=== PATIENT | male | born 1980 | race Caucasian/White ===

== ENCOUNTER 2017-11-27 12:10 | Emergency (ER) | payer BC, OTHER ==
[2017-11-27 12:15] VITALS: BP 124/75; PULSE 81; TEMP 98.2; BMI 26.9
--- NOTE | 2017-11-27 13:04 | PDOC ---
History of Present Illness - General Chief Complaint: Laceration Stated Complaint: LACERATION Time Seen by Provider: 11/27/17 12:49 History Source: Patient Exam Limitations: No Limitations - History of Present Illness Initial Comments: 11/27/17 12:56 This is a 36-year-old male without significant past medical history of presents emergency Department with laceration sustained to posterior right leg status post kicking through a glass door. Patient states this happened immediately prior to arrival is 1. Patient is concerned for retained foreign body within the wound. Patient states last tetanus shot was 3 years ago. Past History - Past Medical History Allergies/Adverse Reactions: Allergies Allergy/AdvReac Type Severity Reaction Status Date / Time No Known Allergies Allergy Verified 11/27/17 12:15 Home Medications: Ambulatory Orders NK [No Known Home Medication] 11/27/17 Cancer: Yes (leukemia) - Suicide/Smoking/Psychosocial Hx Smoking Status: No Smoking History: Never smoked Have you smoked in the past 12 months: No Number of Cigarettes Smoked Daily: 0 Information on smoking cessation initiated: No Hx Alcohol Use: No Drug/Substance Use Hx: No Review of Systems - Review of Systems Able to Perform ROS?: Yes Is the patient limited Icelandic proficient: No Constitutional: No: Symptoms Reported HEENTM: No: Symptoms Reported Respiratory: No: Symptoms reported Cardiac (ROS): No: Symptoms Reported ABD/GI: No: Symptoms Reported : No: Symptoms Reported Musculoskeletal: No: Symptoms Reported Integumentary: Yes: See HPI Neurological: No: Symptoms reported *Physical Exam - Vital Signs Last Vital Signs Temp Pulse Resp BP Pulse Ox 98.2 F 81 16 124/75 100 11/27/17 12:14 11/27/17 12:14 11/27/17 12:14 11/27/17 12:14 11/27/17 12:14 - Physical Exam General Appearance: Yes: Appropriately Dressed. No: Apparent Distress HEENT: positive: Normal ENT Inspection Neck: positive: Trachea midline, Supple Respiratory/Chest: positive: Lungs Clear, Normal Breath Sounds. negative: Respiratory Distress, Accessory Muscle Use Cardiovascular: positive: Regular Rhythm, Regular Rate. negative: Murmur Integumentary: positive: Dry, Warm, Other (2 lacerations noted to posterior right lower leg. Laceration #1 superficial linear approximately 1 cm in length. Laceration #2 is a flap laceration with minor obvious tissue loss noted.) Neurologic: positive: Alert, Normal Response Medical Decision Making - Medical Decision Making 11/27/17 12:59 A/P: 36-year-old male without significant past medical history with 2 lacerations to the back of his right lower leg status post kicking through a glass door 2 laceration sustained to the posterior of the right lower leg Laceration #1 is superficial, subcentimeter and linear well approximated without bleeding Laceration #2 is a flap laceration approximately 0.5 centimeter x 0.5 centimeter with obvious minor tissue loss. X-ray of the right leg 11/27/17 13:56 X-rays reviewed by me and read by Dr. Green: There is no sign of radiopaque foreign body, swelling or soft tissue air but there is some anterior calcifications by the distal tibia. Steri-Strips applied to laceration. Discharge I discussed the physical exam findings, ancillary test results and final diagnoses with the patient. I answered all of the patient's questions. The patient was satisfied with the care received and felt comfortable with the discharge plan and treatment plan. The patient will call his doctor within 96 hours to arrange follow-up and will return to the Emergency Department with any new, persistent or worsening symptoms. *DC/Admit/Observation/Transfer Diagnosis at time of Disposition: Laceration - Discharge Dispostion Disposition: HOME Condition at time of disposition: Good Decision to Admit order: No - Referrals Referrals: Travon Brown MD [Primary Care Provider] - - Patient Instructions Printed Discharge Instructions: DI for Laceration Repair Additional Instructions: Keep wound clean and dry Return to emergency Department or private physician in 5-7 days for suture removal May use Tylenol or Motrin for pain relief Return immediately to emergency department for redness, swelling, pain, or signs of infection - Post Discharge Activity
== END 2017-11-27 14:03 | disposition home or self-care (01) ==
LOC: JERFT 12:10
PROC: 0HQKXZZ Repair Right Lower Leg Skin, External Approach (ICD-10-PCS; principal; 2017-11-27)
DX: S81.811A Laceration without foreign body, right lower leg, initial encounter (principal); W25.XXXA Contact with sharp glass, initial encounter; Y93.89 Activity, other specified; Y92.89 Other specified places as the place of occurrence of the external cause; Y99.8 Other external cause status
CPT/HCPCS: 73590-TC-RT-FY; 99281-25

== ENCOUNTER 2022-05-24 10:31 | Day surgery (SDC) | payer BC, OTHER ==
[2022-05-20 13:37] VITALS: BMI 25.4
[2022-05-24 10:54] VITALS: RESP 20; TEMP 97.8
[2022-05-24] MEDS ORDERED: PROPOFOL 100 ML ONE (11:13)
[2022-05-24] MEDS ORDERED: LIDOCAINE HCL/PF 2% SDV 5ML VIAL ONE (11:13)
[2022-05-24 12:05] VITALS: BP 101/50; PULSE 51
== END 2022-05-24 12:20 | disposition home or self-care (01) ==
LOC: FASU-ENDO 10:31
PROVIDERS: ATTEND Internal Medicine Gastroenterology
PROC: 0DJD8ZZ Inspection of Lower Intestinal Tract, Via Natural or Artificial Opening Endoscopic (ICD-10-PCS; principal; 2022-05-24 11:08)
DX: K62.5 Hemorrhage of anus and rectum (principal); K64.0 First degree hemorrhoids

== ENCOUNTER 2025-03-06 15:41 | Emergency (ER) | payer BC, OTHER ==
[2025-03-06 15:52] VITALS: TEMP 98.8; BMI 27.1
[2025-03-06] MEDS ORDERED: ONDANSETRON 4 MG/2 ML VIAL ONE (16:18)
[2025-03-06] MEDS ORDERED: KETOROLAC TROMETHAMINE 15 MG/ML VIAL ONE (16:18)
[2025-03-06 16:22] LABS: ABSOLUTE IMMATURE GRANULOCYTES 0.03 x10^3/uL (0.0-0.031); BASOPHILS # 0.08 x10^3/uL (0.01-0.08); EOSINOPHIL % 1.3 % (0.8-7.0); EOSINOPHILS # 0.16 x10^3/uL (0.04-0.54); MCHC 33.0 g/dl (32.3-36.5); MEAN CELL VOLUME 87.4 fl (79.0-92.2); MEAN PLT VOLUME 9.1 fl (9.4-12.4); MONOCYTE # 0.54 x10^3/uL (0.30-0.82); MONOCYTE % 4.5 % (5.3-12.2); RDW 11.8 % (12.1-15.9)
[2025-03-06] MEDS: KETOROLAC TROMETHAMINE 15 MG/ML VIAL IVPUSH ONE (16:27)
[2025-03-06] MEDS: LACTATED RINGERS SOLUTION 1000 ML INFUS.BAG IV ONE (16:27)
[2025-03-06] MEDS: ONDANSETRON 4 MG/2 ML VIAL IVPUSH ONE (16:28)
[2025-03-06 16:41] LABS: EPI CELLS 19 /uL (0-25.1); HYALINE CASTS 1 /uL (0-3.1); URINE APPEARANCE TURBID; URINE BACTERIA 5 /uL (0-1359); URINE BILIRUBIN NEGATIVE (NEGATIVE); URINE COLOR RED; URINE GLUCOSE (UA) NEGATIVE (NEGATIVE); URINE KETONE TRACE (NEGATIVE); URINE LEUK ESTERASE 1+ (NEGATIVE); URINE NITRITE NEGATIVE (NEGATIVE); URINE PROTEIN 1+ (NEGATIVE); URINE RBC 18807 /uL (0-23.9); URINE UROBILINOGEN 0.2 mg/dL (0.2-1.0); URINE WBC 39 /uL (0-25.8)
[2025-03-06 16:52] LABS: GLUCOSE,RANDOM 127.0 mg/dL (74-106); TOT PROT 7.8 g/dl (6.4-8.2)
[2025-03-06 16:53] LABS: CO2 23.0 mmol/L (21-32)
[2025-03-06 16:55] LABS: ALK PHOS 74.0 U/L (40-150)
[2025-03-06 16:58] LABS: CREATININE 1.24 mg/dL (0.55-1.3); SGOT/AST 33.0 U/L (5-34); SGPT/ALT 29.0 U/L (0-55)
[2025-03-06 17:37] LABS: HIV INTERPRETATION NEGATIVE (NEGATIVE)
[2025-03-06 17:40] LABS: HCV DIAGNOSTIC IN-HOUSE W/RFLX NON-REACTIVE (NONREACTIVE)
[2025-03-06] MEDS ORDERED: TAMSULOSIN HCL 0.4 MG CAP ONE (18:20)
[2025-03-06 18:23] VITALS: BP 126/76; PULSE 71; RESP 19
[2025-03-06] MEDS: TAMSULOSIN HCL 0.4 MG CAP PO ONE (18:24)
== END 2025-03-06 19:03 | disposition home or self-care (01) ==
LOC: JER 15:41
PROC: 3E0333Z Introduction of Anti-inflammatory into Peripheral Vein, Percutaneous Approach (ICD-10-PCS; principal; 2025-03-06)
PROC: 3E033GC Introduction of Other Therapeutic Substance into Peripheral Vein, Percutaneous Approach (ICD-10-PCS; 2025-03-06)
DX: N13.2 Hydronephrosis with renal and ureteral calculous obstruction (principal); R93.5 Abnormal findings on diagnostic imaging of other abdominal regions, including retroperitoneum; R10.32 Left lower quadrant pain; R39.11 Hesitancy of micturition; R11.10 Vomiting, unspecified; R31.9 Hematuria, unspecified
CPT/HCPCS: 36415; 74176-TC; 80053; 81003; 85025; 86803; 87086; 87389; 99285-25